=== PATIENT | male | born 1960 | race Caucasian/White ===

== ENCOUNTER 2016-10-03 08:01 | Emergency (ER) | payer BC ==
[2016-10-03] MEDS ORDERED: KETOROLAC10 MG PO (11:36)
== END 2016-10-03 11:40 | disposition home or self-care (01) ==
LOC: ED 08:01
DX: M94.0 Chondrocostal junction syndrome [Tietze] (principal); I25.10 Atherosclerotic heart disease of native coronary artery without angina pectoris; F17.210 Nicotine dependence, cigarettes, uncomplicated; R53.83 Other fatigue
CPT/HCPCS: J1885; Q9967

== ENCOUNTER → 2020-11-01 | Outpatient (CLI) | payer BC ==
[2016-10-03 11:47] VITALS: BP 132/78
[~2020-11-01] MED LIST: KETOROLAC10 MG PO
== END ==
LOC: RAD 09:34
DX: I70.293 Other atherosclerosis of native arteries of extremities, bilateral legs (principal)